=== PATIENT | female | born 1965 | race Two or more races ===

== ENCOUNTER 2020-08-27 07:00 | Inpatient (IN) | payer OTHER ==
[~2020-08-27] VITALS: Ht 154.9 cm; Wt 52.6 kg
[2020-08-27] MEDS ORDERED: HUMIRA10 MG/0.2 (08:41)
[2020-08-27] MEDS ORDERED: MULTI-VITAMIN1 EACH PO (08:41)
[2020-08-27] MEDS ORDERED: TREXALL5 MG PO (08:42)
[2020-09-05] MEDS ORDERED: METHOTREXATE2.5 MG (08:03)
[2020-09-05] MEDS ORDERED: FOLIC ACID1 MG (08:03)
[2020-09-05] MEDS ORDERED: HUMIRA(CF)40 MG/0.1 (08:03)
[2020-09-05] MEDS ORDERED: NAPROXEN500 MG (08:03)
== END 2020-09-06 09:29 | disposition home or self-care (01) | DRG 735 ==
LOC: O/R 09-05 06:50 → SURH 09-05 07:00 → OB/GYN 09-05 14:24
PROVIDERS: ADMIT Obstetrics & Gynecology Gynecologic Oncology; ATTEND Obstetrics & Gynecology Gynecologic Oncology
PROC: 0UT94ZZ Resection of Uterus, Percutaneous Endoscopic Approach (ICD-10-PCS; 2020-09-05)
PROC: 0UT74ZZ Resection of Bilateral Fallopian Tubes, Percutaneous Endoscopic Approach (ICD-10-PCS; 2020-09-05)
PROC: 0UT04ZZ Resection of Right Ovary, Percutaneous Endoscopic Approach (ICD-10-PCS; 2020-09-05)
PROC: 07TC4ZZ Resection of Pelvis Lymphatic, Percutaneous Endoscopic Approach (ICD-10-PCS; principal; 2020-09-05 07:00)
DX: D07.0 Carcinoma in situ of endometrium (principal); Z20.828 Contact with and (suspected) exposure to other viral communicable diseases; D25.1 Intramural leiomyoma of uterus; N80.0 Endometriosis of uterus; D27.0 Benign neoplasm of right ovary; N80.2 Endometriosis of fallopian tube